=== PATIENT | male | born 1985 | race Hispanic/Latino ===

== ENCOUNTER 2018-12-24 22:04 | Emergency (ER) | payer SELFPAY ==
[2018-12-24] MEDS ORDERED: Lidocaine Viscous Sol 2% 15 ml UD Cup ONE (22:32)
[2018-12-24] MEDS ORDERED: Mag-Al 1200 mg/1200 mg/30 ML UDCUP ONE (22:32)
--- NOTE | 2018-12-24 22:44 | RAD ---
Exam: Chest one view HISTORY:Pain Comparison: None FINDINGS: Lungs: Bibasilar patchy densities Cardiac silhouette:Accentuated by portable technique Pulmonary vessels: Normal Pleural Spaces: Clear Pneumothorax: None Osseous abnormalities: Multilevel postoperative fusion of the imaged spine IMPRESSION: Bibasilar patchy densities favoring atelectasis. Correlate clinically to exclude evidence of pneumonitis. As necessary, imaging follow-up may be obtained.
[2018-12-24 23:00] LABS: #Eosinphils 0.3 thou/uL (0.0-0.7); #Lymphocytes 1.9 thou/uL (1.20-3.40); #Monocytes 0.5 thou/uL (0.11-0.59); #Neutrophils 5.5 thou/uL (1.40-6.50); %Basophils 0.6 % (0.0-1.0); %Eosinophils 3.3 % (0.0-10.0); %Lymphocytes 23.4 % (21.0-51.0); %Monocytes 6.3 % (0.0-10.0); %Neutrophils 66.5 % (42.0-75.0); Hemoglobin 15.6 g/dL (14.0-18.0); Mean Corpuscular HGB CONC 34.2 g/dL (32.0-36.0); Mean Corpuscular Hemoglobin 30.5 pg (27.0-31.0); Mean Corpuscular Volume 89.1 fL (78.0-98.0); Mean Platelet Volume 7.1 fL (7.4-10.4); Platelet Count 230 thou/uL (130-400); RBC Distribution Width 11.8 % (11.5-14.5); Red Blood Cell (RBC) Count 5.11 mill/uL (4.70-6.10); White Blood Cell (WBC) Count 8.3 thou/uL (4.8-10.8)
[2018-12-24 23:21] LABS: ALT (SGPT) 13 U/L (8-55); AST (SGOT) 13 U/L (5-34); Alkaline Phosphatase 72 U/L (40-110); Anion Gap 12 mmol/L (10-20); BUN (Urea Nitrogen) 13 mg/dL (8.9-20.6); Bilirubin, Total 0.3 mg/dL (0.2-1.2); Calc. Creatinine Clearance 0 mL/min (70-130); Calcium 9.2 mg/dL (7.8-10.44); Carbon Dioxide 25 mmol/L (22-29); Chloride 105 mmol/L (98-107); Estimated GFR-MDRD 70; Globulin 3.1 g/dL (2.4-3.5); Glucose 133 mg/dL (70-105); Potassium 3.9 mmol/L (3.5-5.1); Protein, Total 7.1 g/dL (6.0-8.3); Sodium 138 mmol/L (136-145)
== END 2018-12-25 00:02 | disposition home or self-care (01) ==
LOC: ERS 22:04
DX: R07.89 Other chest pain (principal)
CPT/HCPCS: 36415; 71045; 80053; 84484; 85025; 93005

== ENCOUNTER 2019-04-12 21:40 | Emergency (ER) | payer SELFPAY | END 2019-04-12 23:50 | disposition home or self-care (01) | LOC: ERS 21:40 | DX: B86 Scabies (principal) | CPT/HCPCS: 36416; 99283 ==